=== PATIENT | male | born 1970 | race Caucasian/White ===

== ENCOUNTER 2016-07-08 03:26 | Emergency (ER) | payer BC ==
[~2016-07-08] VITALS: Ht 172.7 cm; Wt 76.2 kg
[2016-07-08] MEDS ORDERED: PRAVASTATIN SOD20 MG PO (03:50)
[2016-07-08] MEDS ORDERED: LOSARTAN POTASS50 MG PO (03:50)
[2016-07-08] MEDS ORDERED: INSULIN PUMP SCCONT (03:51)
[2016-07-08] MEDS ORDERED: ASPIRIN81 M2 PO (03:52)
[2016-07-08] MEDS ORDERED: XYZAL5 MG PO (03:54)
[2016-07-08 03:55] LABS: HEMATOCRIT 41.5 % (38.0-50.0); MCH 29.8 PG (29.0-34.0); MCHC 34.7 G/DL (30.0-36.0); MCV 85.9 FL (86-99); MEAN PLAT.VOLUME 9.7 uM^3 (9.0-12.4); PLATELET COUNT 298 K/uL (156-360); RBC DIS.WIDTH-CV 12.4 % (11.8-14.6); RBC DIS.WIDTH-SD 38.2 % (39-53); RED BLOOD COUNT 4.83 M/uL (4.00-5.50); WHITE BLOOD COUNT 9.2 K/uL (4.1-10.2)
[2016-07-08 03:56] LABS: ADD MIUA? YES; BILIRUBIN NEGATIVE; BLOOD MODERATE; COLOR YELLOW ((YELLOW)); GLUCOSE (STRIP) NEGATIVE; KETONES NEGATIVE; LEUKOCYTES NEGATIVE; NITRITE NEGATIVE; PROTEIN (STRIP) NEGATIVE; SPECIFIC GRAVITY 1.008 (1.000-1.030); UROBILINOGEN 0.2 MG/DL (0.2-1.0)
[2016-07-08 04:05] LABS: CHLORIDE 102 mEq/L (99-109); POTASSIUM 3.3 mEq/L (3.7-5.4); SODIUM 140 mEq/L (136-147)
[2016-07-08 04:07] LABS: GLUCOSE 203 mg/dL (70-99)
[2016-07-08 04:08] LABS: ANION GAP 13 MEQ/L (2-14)
[2016-07-08 04:09] LABS: TOTAL BILIRUBIN 0.3 mg/dL (0.0-1.0)
[2016-07-08 04:10] LABS: ALKALINE PHOSPHATASE 102 IU/L (3-129)
[2016-07-08 04:12] LABS: UREA NITROGEN (BUN) 16 mg/dL (9-23)
[2016-07-08 04:22] LABS: BACTERIA 1+ /HPF; EPITHELIAL CELLS 1+ /HPF; MUCUS 1+ /LPF; RED BLOOD CELLS 20-30 /HPF (0-5); UCUL ADDED? NO; WHITE BLOOD CELLS 0-5 /HPF (0-5)
[2016-07-08 04:29] LABS: GFR ESTIMATE (CALCULATED) > 59 mL/min/
[2016-07-08 04:31] LABS: LIPASE 13 U/L (1.0-51.0)
[2016-07-08] MEDS ORDERED: TORADOL10 MG PO (04:48)
[2016-07-08] MEDS ORDERED: ZOFRAN4 MG PO (04:48)
[2016-07-08] MEDS ORDERED: KEFLEX500 MG PO (04:54)
[2016-07-08 05:26] VITALS: BP 107/72
== END 2016-07-08 05:29 | disposition home or self-care (01) ==
LOC: EME 03:26
DX: N13.2 Hydronephrosis with renal and ureteral calculous obstruction (principal); R31.9 Hematuria, unspecified; R11.2 Nausea with vomiting, unspecified; E10.9 Type 1 diabetes mellitus without complications; Z79.4 Long term (current) use of insulin; Z96.41 Presence of insulin pump (external) (internal); Z79.82 Long term (current) use of aspirin
CPT/HCPCS: 74176; 80053; 81003; 83690; 85027; 99281; 99284; J1885; J2405

== ENCOUNTER → 2016-11-29 | Outpatient (CLI) | payer BC ==
[~2016-11-29] MED LIST: ASPIRIN81 M2 PO; INSULIN PUMP SCCONT; KEFLEX500 MG PO; LOSARTAN POTASS50 MG PO; PRAVASTATIN SOD20 MG PO; TORADOL10 MG PO; XYZAL5 MG PO; ZOFRAN4 MG PO
== END | disposition home or self-care (01) ==
LOC: NUC 07:28
DX: E07.89 Other specified disorders of thyroid (principal)
CPT/HCPCS: 78014; 78999; A9512; A9531